=== PATIENT | male | born 1985 | race Two or more races ===

== ENCOUNTER → 2017-04-03 | Outpatient (CLI) | payer OTHER ==
[~2017-04-03] MED LIST: CIPR500T3 PO; DITR5TAB PO; FLOM5CAP PO; OXYC1TAB23 PO; TYLE650T35 PO
[2017-04-03 19:32] LABS: ANION GAP 9 MEQ/L (8-16); BLOOD UREA NITROGEN 15 MG/DL (7-18); CALCIUM LEVEL 9.6 MG/DL (8.5-10.1); CARBON DIOXIDE LEVEL 27 MEQ/L (21-32); CHLORIDE LEVEL 105 MEQ/L (98-107); CREATININE FOR GFR 1.01 MG/DL (0.70-1.30); GLOMERULAR FILTRATION RATE > 60.0 (>60); GLUCOSE, FASTING 80 MG/DL (70-105); POTASSIUM SERUM 4.2 MEQ/L (3.5-5.1); SODIUM LEVEL 141 MEQ/L (136-145)
[2017-04-03 19:35] LABS: MEAN CORPUSCULAR HEMOGLOBIN 30.2 pg (27.0-33.0); MEAN CORPUSCULAR VOLUME 88.8 fl (80.0-96.0); WHITE BLOOD COUNT 8.1 10^3/uL (4.0-10.0)
[2017-04-03 19:41] LABS: INR 0.98
== END ==
LOC: M SMT 13:59
PROVIDERS: ATTEND Nurse Practitioner Women's Health
DX: N20.0 Calculus of kidney (principal)

== ENCOUNTER 2017-04-24 07:13 | Day surgery (SDC) | payer OTHER ==
[~2017-04-24] VITALS: Ht 165.1 cm; Wt 80.7 kg
[~2017-04-24 07:13] MED LIST changes: -CIPR500T3 PO; -DITR5TAB PO; -FLOM5CAP PO; -OXYC1TAB23 PO; +PROPOFOL 200 MG/20 ML VIAL As Ordered ONE; -TYLE650T35 PO
[2017-04-24] MEDS ORDERED: LR 1,000 ML IV ONE (08:00)
[2017-04-24] MEDS ORDERED: MIDAZOLAM INJ 2 MG/2 ML VIAL (J2250) As Ordered ONE (08:05)
[2017-04-24] MEDS ORDERED: fentaNYL 100 MCG/2 ML INJECTION (J3010) As Ordered ONE (08:05)
[2017-04-24] MEDS ORDERED: DITR5TAB PO (08:17)
[2017-04-24] MEDS ORDERED: OXYC1TAB23 PO (08:17)
--- NOTE | 2017-04-24 08:36 | REP ---
Supine abdomen single AP view: There are no comparisons. There is a left ureteral stent with the proximal and distal pigtails in satisfactory location. No calcifications are identified along the course of the stent or superimposed over the left or the right kidney or along the courses of the right or left ureters. Bowel gas pattern is normal. Skeletal structures are unremarkable. Impression: Left ureteral stent. No calcifications are identified. Signed by Tyrone Sherwood MD 04/24/2017 08:27 A
[2017-04-24] MEDS ORDERED: CIPR500T3 PO (08:52)
[2017-04-24] MEDS ORDERED: FLOM5CAP PO (08:52)
[2017-04-24] MEDS ORDERED: TYLE650T35 PO (08:52)
[2017-04-24] MEDS ORDERED: KETOROLAC 60 MG/2 ML VIAL (J1885) As Ordered ONE (08:55)
[2017-04-24] MEDS ORDERED: PERCOCET 5MG/325MG TAB PO PRN (09:30)
[2017-04-24 12:15] VITALS: BP 149/91
--- NOTE | 2017-04-28 08:08 | RO ---
DATE OF PROCEDURE: 04/24/2017 PREPROCEDURE DIAGNOSIS: Left renal stone. POSTPROCEDURE DIAGNOSIS: Left ureteral stone. PROCEDURE: Left extracorporal shockwave lithotripsy. Removal of left double J stent (pulling of the string attached to the stent removed). SURGEON: Dr. Murphy Moeller GLASS BLOCK BENDER: ANESTHESIA: MAC. FINDINGS: Left ureteral stone about 8 mm in diameter plus a left double J stent placed in good position. COMPLICATIONS: None. ESTIMATED BLOOD LOSS: N/A HISTORY OF PRESENT ILLNESS: 32-year-old male patient with an 8 mm left ureteral stone that had a left ureteral stent placed. The patient is consented for a left extracorporal shockwave lithotripsy. DESCRIPTION OF PROCEDURE: With the patient under MAC anesthesia in supine position, after finding the stone with x-ray and ultrasound. We actually gave a total of 3000 shockwave lithotripsy to the left ureteral stone of about 8 mm in diameter. The power was from 1-20. The first 100 shockwave lithotripsy was done at a power of 1-6, the following 100 shockwave lithotripsies were done at a power of 6-10 and the following 100 shockwave lithotripsies were done at a power of 10-16 and the final 2700 shockwave lithotripsies were done at a power of 16-20. We could see on fluoroscopy that the stone actually pulverized and dispersed completely. For this reason, we actually decided to remove the double J stent by pulling on the string of the left double J stent at the end of the procedure. The stent came out completely intact and the patient tolerated the procedure well. For this reason, the patient will go home today with Tylenol for pain antibiotic and Flomax. He will followup at [facility] in about 1-2 weeks to see how he is doing.
== END 2017-04-24 12:34 | disposition home or self-care (01) ==
LOC: M SDC 07:13
PROVIDERS: ATTEND Urology
DX: N20.0 Calculus of kidney (principal)

== ENCOUNTER → 2017-04-28 | Outpatient (REF) | payer OTHER ==
[~2017-04-28] MED LIST changes: +CIPR500T3 PO; +DITR5TAB PO; +FLOM5CAP PO; +OXYC1TAB23 PO; -PROPOFOL 200 MG/20 ML VIAL As Ordered ONE; +TYLE650T35 PO
== END ==
LOC: M SMT 16:58
PROVIDERS: ATTEND Urology
DX: N20.1 Calculus of ureter (principal)